=== PATIENT | female | born 1945 | race Caucasian/White ===

== ENCOUNTER → 2018-09-16 | Outpatient (CLI) | payer OTHER ==
[~2018-09-16] MED LIST: ACET500 PO; CHOL10002 PO; FISH1000 PO; HYDCHL12.5 PO; NAPR220 PO
== END | disposition home or self-care (01) ==
LOC: PLD 10:36 → LAB SHORT 10:36
DX: C44.311 Basal cell carcinoma of skin of nose (principal)
CPT/HCPCS: 88305

== ENCOUNTER → 2019-03-23 | Outpatient (CLI) | payer OTHER | END | disposition home or self-care (01) | LOC: LAB SHORT 11:48 → PLD 11:48 | DX: D18.01 Hemangioma of skin and subcutaneous tissue (principal) | CPT/HCPCS: 88305 ==

== ENCOUNTER → 2023-01-24 | Outpatient (CLI) | payer OTHER ==
[2023-01-24 12:42] LABS: BASOPHILS ABSOLUTE AUTO 0.02 K/mm3 (0.00-0.23); BASOPHILS PERCENT AUTO 0 % (0-2); EOSINOPHILS ABSOLUTE AUTO 0.12 K/mm3 (0.00-0.68); EOSINOPHILS PERCENT AUTO 2 % (0-6); Hematocrit 45.9 % (33.0-51.0); Hemoglobin 15.8 g/dL (11.5-16.0); IMMATURE GRAN ABSOLUTE AUTO 0.01 K/mm3 (0.00-0.10); IMMATURE GRAN PERCENT AUTO 0 % (0-1); LYMPHOCYTES ABSOLUTE AUTO 1.62 K/mm3 (0.84-5.20); LYMPHOCYTES PERCENT AUTO 30 % (21-46); MONOCYTES ABSOLUTE AUTO 0.35 K/mm3 (0.16-1.47); MONOCYTES PERCENT AUTO 7 % (4-13); Mean Corpuscular HGB 31.4 pg (26.0-34.0); Mean Corpuscular HGB Conc 34.4 g/dL (31.5-36.5); Mean Corpuscular Volume 91 fL (80-100); Mean Platelet Volume 11.1 fL (9.1-12.4); NEUTROPHILS ABSOLUTE AUTO 3.25 K/mm3 (1.96-9.15); NEUTROPHILS PERCENT AUTO 61 % (41-73); Platelet Count 165 K/mm3 (150-400); RDW Coefficient Variation 12.3 % (11.7-14.2); RDW Standard Deviation 40.9 fL (35.1-46.3); Red Blood Cell Count 5.03 M/mm3 (3.80-5.20); White Blood Cell Count 5.37 K/mm3 (4.00-11.30)
[2023-01-24 16:21] LABS: Alanine Aminotransfer (ALT/SGP 31 U/L (12-78); Albumin, Blood 4.1 g/dL (3.4-5.0); Albumin/Globulin Ratio 1.2 (0.8-1.8); Alk Phos 97 U/L (50-136); Anion Gap 9 mmol/L (6-16); Aspartate Aminotrans (AST/SGOT 23 U/L (12-37); Bilirubin, Total 0.8 mg/dL (0.1-1.0); Blood Urea Nitrogen 16 mg/dL (8-24); CHOL/HDL RATIO 2.2; CO2, Blood 25 mmol/L (21-32); Calcium, Blood 8.9 mg/dL (8.5-10.1); Chloride, Blood 101 mmol/L (98-108); Cholesterol 126 mg/dL (50-200); Creatinine, Blood 0.84 mg/dL (0.40-1.00); Globulin, Blood 3.3 g/dL (2.2-4.0); Glomerular Filtration Rate 72 (60-); Glucose, Blood 99 mg/dL (70-99); HDL Cholesterol 57 mg/dL (>39); LDL/HDL RATIO 0.9; Low Density Lipoprotein Chol 49 mg/dL (0-110); Potassium, Blood 3.7 mmol/L (3.5-5.5); Sodium, Blood 135 mmol/L (136-145); Total Protein, Blood 7.4 g/dL (6.4-8.2); Triglycerides 98 mg/dL (30-160); Very Low Density Lipoprot Chol 19 mg/dL (6-32)
[2023-01-26 07:08] LABS: HEMOGLOBIN A1C 5.5 % (4.8-5.6)
== END ==
LOC: LAB 11:37 → LAB SHORT 11:37
PROVIDERS: Family Medicine
DX: Z12.11 Encounter for screening for malignant neoplasm of colon (principal); E78.49 Other hyperlipidemia; I10 Essential (primary) hypertension; M85.80 Other specified disorders of bone density and structure, unspecified site; R73.9 Hyperglycemia, unspecified
CPT/HCPCS: 36415; 80053; 80061; 82306; 83036; 84443; 85025

== ENCOUNTER → 2023-01-27 | Outpatient (CLI) | payer OTHER ==
[2023-01-28 10:33] LABS: Stool Occult Bld Immuno 1 Negative (NEGATIVE)
== END | disposition home or self-care (01) ==
LOC: LAB 07:30 → LAB SHORT 07:30 → LAB FUT 01-25 12:00
PROVIDERS: Family Medicine
DX: Z12.11 Encounter for screening for malignant neoplasm of colon (principal)
CPT/HCPCS: G0328

== ENCOUNTER 2023-02-17 07:03 | Day surgery (SDC) | payer OTHER | END 2023-02-17 23:02 | disposition home or self-care (01) | LOC: CT 07:03 | DX: I20.8 Other forms of angina pectoris (principal); I10 Essential (primary) hypertension; E78.5 Hyperlipidemia, unspecified; K21.9 Gastro-esophageal reflux disease without esophagitis; E66.9 Obesity, unspecified; G47.33 Obstructive sleep apnea (adult) (pediatric); G43.909 Migraine, unspecified, not intractable, without status migrainosus; Z99.89 Dependence on other enabling machines and devices ==

== ENCOUNTER 2023-04-23 06:17 | Day surgery (SDC) | payer OTHER ==
[~2023-04-23] VITALS: Ht 165.1 cm; Wt 87.0 kg
[~2023-04-23 06:17] MED LIST changes: +ALLERGY RELIEF5 M1 PO; +ATOR40TA PO; +Acerola C500 MG PO; +Aspir 8181 MG PO; +DOC250 PO; +FISH OIL 1,0001 EA10 PO; +GLUC500 PO; +OMEP20ER PO; +UBID10 PO; +ZINC220 PO
[2023-04-23 10:28] VITALS: BP 128/78
--- NOTE | 2023-04-23 10:29 | NUR ---
pt arrives post procedure. Alert and oriented. TR and in place to right radial. site wnl at this time. vss upon arrival. beverages offered, lunch tray ordered. pt. resting comfortably in bed.
[2023-04-23 10:30] VITALS: BP 117/73
[2023-04-23 10:45] VITALS: BP 132/81
[2023-04-23 11:30] VITALS: BP 137/52
--- NOTE | 2023-04-23 11:50 | NUR ---
PT FRIEND TO BEDSIDE, TR DEFLATION WILL BEGIN PER DR. DUNCAN. PT VSS, PT SITTING UP EATING LUNCH.
[2023-04-23 12:00] VITALS: BP 132/68
[2023-04-23 12:30] VITALS: BP 150/102
--- NOTE | 2023-04-23 13:20 | NUR ---
PT ABLE TO GET SELF DRESSED WITH OUT DIFFICULTY. DISCHARGE INSTRUCTIONS REPEATED. SLING AND ARM BOARD PROVIDED. PT. TAKEN VIA WHEELCHAIR TO EXIT. PT FAMILY TO DRIVE PT HOME. VSS UPON DISCHARGE. RADIAL SITE REMAINS UNCHANGED. CLEAR OCCLUSIVE DRESSING IN PLACE.
== END 2023-04-23 13:00 | disposition home or self-care (01) ==
LOC: MHTC 06:17
DX: I20.89 Other forms of angina pectoris (principal); I10 Essential (primary) hypertension; R94.39 Abnormal result of other cardiovascular function study; G47.33 Obstructive sleep apnea (adult) (pediatric); E78.5 Hyperlipidemia, unspecified; I34.0 Nonrheumatic mitral (valve) insufficiency
CPT/HCPCS: 76937; 85347; 93458; 93571; 99152; 99153; C1769; C1887; C1894; J0461; J1644; J2250; J3010; J7030; J7050; Q9967

== ENCOUNTER 2024-09-07 09:13 | Day surgery (SDC) | payer OTHER ==
[2024-08-20 11:20] VITALS: BP 187/96
[~2024-09-07] VITALS: Ht 165.1 cm; Wt 88.2 kg
[~2024-09-07 09:13] MED LIST changes: +ALMACONE SUSPE355 ML; +AMIODARONE HCL200 MG PO; +HYDCHL25 PO; +METO100ER PO; +RANO500T PO
== END 2024-09-07 23:00 | disposition home or self-care (01) ==
LOC: MHTC NI 09:13 → MHTC 09:13 → MHTC NI 23:00 → EDSTATUS 09-09 10:30 → MHTC NI 09-09 10:30
DX: I49.3 Ventricular premature depolarization (principal); I48.91 Unspecified atrial fibrillation
CPT/HCPCS: 93246